=== PATIENT | female | born 1990 | race African-American/Black ===

== ENCOUNTER 2019-07-20 17:47 | Emergency (ER) | payer OTHER ==
[~2019-07-20] VITALS: Ht 170.2 cm; Wt 68.0 kg
--- NOTE | 2019-07-20 17:53 | PHYS DOC ---
Adult General Chief Complaint Chief Complaint: FEVER''... I suzanne hurt all over... I just had a baby at [facility]... I got a fever.. I am still having some bleeding.. .. I didn not want to go all the way back down to [facility].... that is usually where I get all my care..." HPI HPI Patient is a 28 year old female who presents with above hx and complaints generalized malaise, myalgia, arthralgia, vaginal bleeding, fever, and chills. Reportedly cultures were negative prior to her delivery. Child is doing well. Patient did not get flu vaccination this season. No recent travel. No history immunosuppression. Patient states her bleeding is almost equivalent to still having a period. . Review of Systems Review of Systems Constitutional: Complaints of fever or chills [] Eyes: Denies change in visual acuity, redness, or eye pain [] HENT: Complaints of nasal congestion . Respiratory: Denies cough or shortness of breath [] Cardiovascular: No additional information not addressed in HPI [] GI: Denies abdominal pain, nausea, vomiting, bloody stools or diarrhea [] : Denies dysuria or hematuria . Patient has []complaints of vaginal bleeding Musculoskeletal: Complaints of generalized myalgia and arthralgia Integument: Denies rash or skin lesions [] Neurologic: Denies headache, focal weakness or sensory changes [] Endocrine: Denies polyuria or polydipsia [] All other systems were reviewed and found to be within normal limits, except as documented in this note. Family History Family History Noncontributory Current Medications Current Medications See nursing for home meds Allergies Allergies No known drug allergies Physical Exam Physical Exam Constitutional: Well developed, well nourished, moderate acute distress, non- toxic appearance. [] HENT: Normocephalic, atraumatic, bilateral external ears normal, oropharynx moist, mild postnasal drainage and erythema, no oral exudates, nose swollen turbinates and clear rhinorrhea Eyes: PERRLA, EOMI, conjunctiva normal, no discharge. [] Neck: Normal range of motion, no tenderness, supple, no stridor. [] Cardiovascular: Tachycardia Heart rate regular rhythm, no murmur [] Lungs & Thorax: Bilateral breath sounds at apexes with a few scattered wheezes on auscultation [] Abdomen: Bowel sounds normal, soft, mild tenderness, no masses, no pulsatile masses. [] Healing incision. Vaginal exam mild bleeding from os. No focal areas of tenderness. Rectal nontender Skin: Warm, dry, no erythema, no rash. Poor turgor Back: No tenderness, no CVA tenderness. [] Extremities: No tenderness, no cyanosis, no clubbing, ROM intact, no edema. No psoas sign Neurologic: Alert and oriented X 3, normal motor function, normal sensory function, no focal deficits noted. [] Psychologic: Affect anxious and tearful, judgement normal, mood normal. [] EKG EKG [] Radiology/Procedures Radiology/Procedures [][address] [address] IMAGING REPORT Signed PATIENT: CHANTAL GILLIS ACCOUNT: [id number] : 1990 LOCATION: ER AGE: 28 SEX: F EXAM STATUS: REG ER ORD. PHYSICIAN: PREET TATUM MD REASON: Omni 300,75ml IV.Omni 240, 30ml PO.Rt lower abd pain,fever,chills PROCEDURE: CT ABD PELV W/ORAL&IV CONTRAST Examination: CT ABD PELV W/ORAL IV CONTRAST History: Right lower abdominal pain, fever and chills Comparison/Correlation: None Findings: Axial images of the abdomen and pelvis were obtained following IV and oral contrast. Liver, spleen, pancreas, adrenal glands, and left kidney are normal. Right hydronephrosis to the ureteropelvic junction level is present. No right hydroureter. Uterus is enlarged appearance. Endometrial thickening noted. Complex fluid within the uterine cavity appears be present. Right adnexal follicle is physiologic in appearance. No inflammatory change about the cecum. Assessment is limited due to limited mesenteric fat. No enlarged abdominal or pelvic lymph nodes. Urinary bladder is unremarkable. Bony structures are unremarkable. Transitional L5 vertebra is seen. Impression: Right hydronephrosis. Ureteropelvic junction obstruction. No radiopaque calculus seen. No perinephric edema to suggest acute obstructive process. Uterus is enlarged. Slightly high density fluid within the endometrial cavity. Correlate for underlying infectious process. Correlate with history. PQRS Compliance Statement: One or more of the following individualized dose reduction techniques were utilized for this examination: 1. Automated exposure control 2. Adjustment of the mA and/or kV according to patient size 3. Use of iterative reconstruction technique Electronically signed by: Rosendo Dean MD (07/20/2019 10:42 PM) [facility] DICTATED AND SIGNED BY: ROSENDO DEAN MD DATE: 07/20/19 1225 CC: PREET TATUM MD; PCP,KARIME ~ Course & Med Decision Making Course & Med Decision Making Pertinent Labs and Imaging studies reviewed. (See chart for details) Patient to push fluids. Patient keep follow-up with her [employer] and primary care. Continue monitor for vaginal bleeding. Take Tylenol and ibuprofen for discomfort. Up-to-date flu vaccination when over this acute influenza episode. Call primary in a.m. for follow-up. Exam currently not consistent with a uterine infection. Must follow-up. Overall presentation consistent with influenza. There is always a possibility of possible retained uterine products so must follow-up. Impression: 1. Fever 2. Abdomen Pain 3. S/P Delivery 07/09- at [facility] 4. + Influ B 5. Vaginal Bleeding [] Dragon Disclaimer Dragon Disclaimer This electronic medical record was generated, in whole or in part, using a voice recognition dictation system. Departure Departure: Disposition: 01 HOME/RESIDENCE PRIOR TO ADM Condition: STABLE Referrals: PCPKARIME (PCP) Juwan Disclaimer This chart was dictated in whole or in part using Voice Recognition software in a busy, high-work load, and often noisy Emergency Department environment. It may contain unintended and wholly unrecognized errors or omissions. PREET TATUM MD Jul 20, 2019 17:53
[2019-07-20] MEDS ORDERED: MORPHINE SULFATE 10 MG/ML SYRINGE. SQ ONE ×2 (19:00→22:45)
[2019-07-20] MEDS ORDERED: IV RINGERS SOLUTION,LACTATED 1,000 ML IV SCH (19:02)
[2019-07-20] MEDS ORDERED: FAMOTIDINE 20 MG/2 ML VIAL IVP ONE (19:15)
[2019-07-20] MEDS ORDERED: IOHEXOL 300 MG/ML 75 ML VIAL. IV ONE (19:45)
[2019-07-20] MEDS ORDERED: ONDANSETRON PF 4 MG/2 ML VIAL. IVP ONE (19:45)
[2019-07-20 20:08] LABS: BASO % 1 % (0-3); EOS % 1 % (0-3); HEMATOCRIT 37.4 % (36.0-47.0); HEMOGLOBIN 12.3 g/dL (12.0-15.5); LYMPH # 1.3 x10^3/uL (1.0-4.8); LYMPH % 25 % (24-48); MEAN CORPUSCULAR HEMOGLOBIN 30 pg (25-35); MEAN CORPUSCULAR HGB CONC 33 g/dL (31-37); MEAN CORPUSCULAR VOLUME 92 fL (79-100); MONO # 0.7 x10^3/uL (0.0-1.1); MONO % 14 % (0-9); NEUT % 59 % (31-73); PLATELET COUNT 251 x10^3/uL (140-400); RED BLOOD COUNT 4.06 x10^6/uL (3.50-5.40); WHITE BLOOD COUNT 5.1 x10^3/uL (4.0-11.0)
[2019-07-20 20:18] LABS: CALCIUM 8.1 mg/dL (8.5-10.1); GFR 101.9; GLUCOSE 82 mg/dL (70-99); SODIUM 140 mmol/L (136-145)
[2019-07-20 20:23] LABS: INFLUENZA A PATIENT NEGATIVE (NEGATIVE); INFLUENZA B PATIENT POSITIVE (NEGATIVE)
[2019-07-20 20:34] LABS: AST (SGOT) 15 U/L (15-37); TOTAL BILIRUBIN 0.2 mg/dL (0.2-1.0)
[2019-07-20] MEDS ORDERED: IOHEXOL 240 MG/ML 50ML VIAL. ONE (20:51)
[2019-07-20 21:00] LABS: U PREG PATIENT NEGATIVE (NEG)
[2019-07-20 21:08] LABS: BARBITURATES NEG (NEG); BENZODIAZEPINES NEG (NEG); CANNABINOIDS NEG (NEG); COCAINE NEG (NEG); METHADONE NEG (NEG); OPIATES POS (NEG); PHENCYCLIDINE NEG (NEG)
[2019-07-20 21:09] LABS: AMPHETAMINE/METHAMPHETAMINE NEG (NEG)
[2019-07-20 21:27] LABS: ANION GAP 8 (6-14); BLOOD UREA NITROGEN 12 mg/dL (7-20); CARBON DIOXIDE 24 mmol/L (21-32); CHLORIDE 108 mmol/L (98-107); CREATININE 0.8 mg/dL (0.6-1.0); POTASSIUM 3.7 mmol/L (3.5-5.1)
[2019-07-20 21:42] LABS: ALK PHOS 87 U/L (46-116); ALT (SGPT) 16 U/L (14-59); DIRECT BILIRUBIN 0.1 mg/dL (0.0-0.2); LIPASE 304 U/L (73-393)
[2019-07-20 22:04] LABS: BACTERIA,URINE 0 /HPF (0-FEW); BILIRUBIN,URINE NEG (NEG); CLARITY,URINE CLOUDY; COLOR,URINE YELLOW; GLUCOSE,URINE NEG (NEG); NITRITE,URINE NEG (NEG); SQUAMOUS EPITHELIAL CELL,UR OCC /LPF; UROBILINOGEN,URINE 0.2 mg/dL (0.2 mg/dL)
--- NOTE | 2019-07-20 22:44 | RAD ---
Examination: CT ABD PELV W/ORAL IV CONTRAST History: Right lower abdominal pain, fever and chills Comparison/Correlation: None Findings: Axial images of the abdomen and pelvis were obtained following IV and oral contrast. Liver, spleen, pancreas, adrenal glands, and left kidney are normal. Right hydronephrosis to the ureteropelvic junction level is present. No right hydroureter. Uterus is enlarged appearance. Endometrial thickening noted. Complex fluid within the uterine cavity appears be present. Right adnexal follicle is physiologic in appearance. No inflammatory change about the cecum. Assessment is limited due to limited mesenteric fat. No enlarged abdominal or pelvic lymph nodes. Urinary bladder is unremarkable. Bony structures are unremarkable. Transitional L5 vertebra is seen. Impression: Right hydronephrosis. Ureteropelvic junction obstruction. No radiopaque calculus seen. No perinephric edema to suggest acute obstructive process. Uterus is enlarged. Slightly high density fluid within the endometrial cavity. Correlate for underlying infectious process. Correlate with history. PQRS Compliance Statement: One or more of the following individualized dose reduction techniques were utilized for this examination: 1. Automated exposure control 2. Adjustment of the mA and/or kV according to patient size 3. Use of iterative reconstruction technique Electronically signed by: Rosendo Forbes MD (07/20/2019 10:42 PM) [facility]
[2019-07-20] MEDS ORDERED: MORPHINE SULFATE 4 MG/ML DISP.SYRIN. IV ONE (22:45)
[2019-07-20] MEDS ORDERED: ACETAMINOPHEN 500 MG TABLET PO ONE (22:45)
--- NOTE | 2019-07-20 22:54 | RAD ---
EXAM: Frontal view of the chest, AP views of the abdomen in upright and supine positions. CLINICAL INDICATION: Abdominal pain, nausea, vomiting COMPARISON: None. FINDINGS and IMPRESSION: The heart is not enlarged. Mediastinal and hilar contours are normal. No focal parenchymal airspace opacity. No pleural effusion or pneumothorax. No abnormal small or large bowel dilatation. Moderate colonic stool content. No abnormal soft tissue mass effect. No suspicious calcifications are seen. No free intraperitoneal gas. Electronically signed by: Zane Jacob MD (07/20/2019 10:51 PM) [facility]
[2019-07-20 23:50] VITALS: BP 125/69
[2019-07-24 18:07] LABS: CHLAMYDIA PROBE Negative (Negative)
== END 2019-07-20 23:50 | disposition home or self-care (01) ==
LOC: ER 17:47
DX: O72.1 Other immediate postpartum hemorrhage (principal); J10.1 Influenza due to other identified influenza virus with other respiratory manifestations; Z37.0 Single live birth; Z98.890 Other specified postprocedural states
CPT/HCPCS: 36415; 74022; 74177; 80048; 80076; 80307; 81001; 81025; 82553; 83605; 83690; 84484; 84702; 85025; 85610; 85730; 87040; 87070; 87086; 87491; 87591; 87804; 87880; 96372; 96374; 96375; 99285; J2270; J2405; J3490; J7120; Q9967; 94640

== ENCOUNTER 2020-06-07 11:30 | Emergency (ER) | payer OTHER ==
[~2020-06-07] VITALS: Ht 170.2 cm; Wt 64.2 kg
[2020-06-07 11:44] VITALS: BP 106/68
--- NOTE | 2020-06-07 13:54 | PHYS DOC ---
Past History Past Medical History: No Pertinent History Past Surgical History: Appendectomy Alcohol Use: None Drug Use: None General Adult EDM: Chief Complaint: COUGH HPI: HPI: Patient is a 29-year-old female coming in for fever, headache, cough, myalgias for the past day. Says her children was also recently with similar symptoms, they were tested for Covid testing negative. Review of Systems: Review of Systems: Constitutional: Fever Eyes: Denies change in visual acuity HENT: Denies nasal congestion or sore throat Respiratory: Nonproductive cough Cardiovascular: Denies chest pain or edema GI: Denies abdominal pain, nausea, vomiting, bloody stools or diarrhea : Denies dysuria Musculoskeletal: Denies back pain or joint pain Integument: Denies rash Neurologic: Headache without focal weakness or sensory changes Endocrine: Denies polyuria or polydipsia Lymphatic: Denies swollen glands Psychiatric: Denies depression or anxiety Allergies: Allergies: Allergies Coded Allergies Type Severity Reaction Last Updated Verified No Known Drug Allergies 07/20/19 No Physical Exam: PE: Constitutional: Well developed, well nourished, no acute distress, non-toxic appearance. [] HENT: Normocephalic, atraumatic, bilateral external ears normal, oropharynx tom st, no oral exudates, nose normal. [] Eyes: PERRLA, EOMI, conjunctiva normal, no discharge. [] Neck: Normal range of motion, no tenderness, supple, no stridor. [] Cardiovascular:Heart rate regular rhythm, no murmur [] Lungs & Thorax: Bilateral breath sounds clear to auscultation [] Abdomen: Bowel sounds normal, soft, no tenderness, no masses, no pulsatile masses. [] Skin: Warm, dry, no erythema, no rash. [] Back: No tenderness, no CVA tenderness. [] Extremities: No tenderness, no cyanosis, no clubbing, ROM intact, no edema. [] Neurologic: Alert and oriented X 3, normal motor function, normal sensory function, no focal deficits noted. [] Psychologic: Affect normal, judgement normal, mood normal. [] Current Patient Data: Vital Signs: Vital Signs Date Time Temp Pulse Resp B/P (MAP) Pulse Ox O2 Delivery O2 Flow Rate FiO2 06/07/20 11:44 98.6 89 16 106/68 (81) 97 Room Air EKG: EKG: [] Radiology/Procedures: Radiology/Procedures: [] Heart Score: Risk Factors: Risk Factors: DM, Current or recent (<one month) smoker, HTN, HLP, family his tory of CAD, obesity. Risk Scores: Score 0 - 3: 2.5% MACE over next 6 weeks - Discharge Home Score 4 - 6: 20.3% MACE over next 6 weeks - Admit for Clinical Observation Score 7 - 10: 72.7% MACE over next 6 weeks - Early Invasive Strategies Course & Med Decision Making: Course & Med Decision Making Strep negative, flu and Covid test. Patient requesting note for work. 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 Dis cussed that we will check the results of the test and call her if they are positive. [] [place] Disclaimer: Dragon Disclaimer: This electronic medical record was generated, in whole or in part, using a voice recognition dictation system. Departure Departure: Impression: Primary Impression: Upper respiratory infection Disposition: 01 DC HOME SELF CARE/HOMELESS Condition: STABLE Referrals: PCP,NO (PCP) GUSTABO BURNS MD Jun 07, 2020 13:54
[2020-06-07 14:32] LABS: INFLUENZA A PATIENT NEGATIVE (NEGATIVE); INFLUENZA B PATIENT NEGATIVE (NEGATIVE)
--- NOTE | 2020-06-10 12:58 | NUR ---
IP: attempt to notify patient of COVID result, unable to leave callback message, will send letter.
== END 2020-06-07 13:55 | disposition home or self-care (01) ==
LOC: ER 11:30
DX: J06.9 Acute upper respiratory infection, unspecified (principal); Z20.828 Contact with and (suspected) exposure to other viral communicable diseases
CPT/HCPCS: 87070; 87804; 87880; 99283; C9803; U0003

== ENCOUNTER 2021-01-29 07:33 | Emergency (ER) | payer OTHER ==
[~2021-01-29] VITALS: Ht 170.2 cm; Wt 64.2 kg
[2021-01-29 07:50] VITALS: BP 112/80
--- NOTE | 2021-01-29 08:06 | PHYS DOC ---
Past History Past Medical History: No Pertinent History Past Surgical History: No Surgical History, Appendectomy Alcohol Use: None Drug Use: None Adult General Chief Complaint Chief Complaint: DENTAL PROBLEM HPI HPI Patient is a 30-year-old female presenting for dental problems. Onset was 3 weeks ago, she visited [facility] local urgent care and was diagnosed with a broken tooth status post breaking said tooth from her metallic tongue ring. She was given pain medication and an antibiotic which she took to completion. This did not resolve her problem and so she followed up with a local dentist who prescribed her more antibiotics. She has finished these but reports of ongoing pain for past x2 nights. She is taken Tylenol only intermittently without any improvement in pain. She is here for ongoing focal pain to area of broken tooth, no fever, abscess, exudate/drainage or other concerning findings Review of Systems Review of Systems Fourteen body systems of review of systems have been reviewed. See HPI for pertinent positives and negative responses, other richard all other systems are negative, non-pertinent or non-contributory Allergies Allergies Allergies Coded Allergies Type Severity Reaction Last Updated Verified No Known Drug Allergies 07/20/19 No Physical Exam Physical Exam Constitutional: Well developed, well nourished, no acute distress, non-toxic appearance. HENT: Normocephalic, atraumatic, bilateral external ears normal, oropharynx moist, no oral exudates, broken tooth #30 without any signs of active infection or concern for abscess or any other dental emergencies, tolerating secretions without phonation, nose normal. Eyes: PERRLA, EOMI, conjunctiva normal, no discharge. Neck: Normal range of motion, no tenderness, supple, no stridor. Cardiovascular: Heart rate regular per monitor Lungs & Thorax: No respiratory distress or accessory muscle use, bilateral chest rise Abdomen: Abdomen soft, non-tender, bowel sounds present in all quadrants, no guarding or rebound, nonacute abdomen. Skin: Warm, dry, no erythema, no rash. Back: No tenderness, no CVA tenderness. Extremities: No tenderness, no cyanosis, no clubbing, ROM intact, no edema. Neurologic: Alert and oriented X 3, grossly normal motor & sensory function, no focal deficits noted. Psychologic: Affect normal, judgement normal, mood normal. Current Patient Data Vital Signs Vital Signs Date Time Temp Pulse Resp B/P (MAP) Pulse Ox O2 Delivery O2 Flow Rate FiO2 01/29/21 07:50 98.8 94 18 112/80 98 Room Air EKG EKG [] Radiology/Procedures Radiology/Procedures [] Heart Score C/O Chest Pain: No Risk Factors: Risk Factors: DM, Current or recent (<one month) smoker, HTN, HLP, family history of CAD, obesity. Risk Scores: Risk Factors: DM, Current or recent (<one month) smoker, HTN, HLP, family history of CAD, obesity. Course & Med Decision Making Course & Med Decision Making ABCs unremarkable. I disclosed entirety of ER findings and discussed most likely diagnosis of a broken tooth. Toradol and Tylenol administered in ER. She has a dentist, I advised her to contact and visit them [facility] for definitive management. Strict return precautions were also discussed at length with good understanding by patient. Patient voiced understanding and agreement with the plan. Patient knows to come back for repeat evaluation if concerning signs or symptoms present prior to outpatient follow-up. Hemodynamically stable, ambulatory and well-appearing at time of disposition. Dragon Disclaimer Dragon Disclaimer This electronic medical record was generated, in whole or in part, using a voice recognition dictation system. Departure Departure: Impression: Primary Impression: Pain, dental Disposition: HOME / SELF CARE / HOMELESS Condition: STABLE Referrals: PCP,NO (PCP) Patient Instructions: Dental Pain, [id number] Additional Instructions: You were seen for dental pain. There does not appear to be any infection at this time. Take Ibuprofen (600-800mg) and Tylenol (500-650mg) alternating every 4-6 hours to help with inflammation and pain while you contact your dentist ALEXSANDRA for further care. You should return to the ED if you develop worsening pain, fever > 101, swelling, redness, or any other new or concerning symptoms. Unfortunately, your pain is not likely to improve without seeing a dentist for further evaluation and treatment of your poor dentition and dental caries. MARCELLO POWELL DO Jan 29, 2021 08:06
[2021-01-29] MEDS ORDERED: KETOROLAC 60 MG/2 ML VIAL. IM ONE (08:15)
[2021-01-29] MEDS ORDERED: ACETAMINOPHEN 325 MG TABLET PO ONE (08:15)
== END 2021-01-29 08:35 | disposition home or self-care (01) ==
LOC: ER 07:33
DX: K08.89 Other specified disorders of teeth and supporting structures (principal)
CPT/HCPCS: 81025; 96372; 99283; J1885

== ENCOUNTER 2021-03-09 09:35 | Emergency (ER) | payer OTHER ==
[~2021-03-09] VITALS: Ht 172.7 cm; Wt 67.8 kg
[2021-03-09 09:53] VITALS: BP 120/72
[2021-03-09] MEDS ORDERED: METOCLOPRAMIDE HCL 10 MG/2 ML VIAL. IVP ONE (10:15)
[2021-03-09] MEDS ORDERED: IV NORMAL SALINE 1,000ML 1,000 ML IV ONE (10:15)
[2021-03-09] MEDS ORDERED: diphenhydrAMINE 50 MG/ML VIAL IVP ONE (10:15)
[2021-03-09] MEDS ORDERED: KETOROLAC 30 MG/ML VIAL. IVP ONE (10:15)
--- NOTE | 2021-03-09 10:28 | PHYS DOC ---
Past History Past Medical History: No Pertinent History Past Surgical History: No Surgical History Alcohol Use: None Drug Use: None General Adult EDM: Chief Complaint: HEADACHE HPI: HPI: 30-year-old female presents with nausea, vomiting, headache for the last 2 days. The patient is vaccinated for COVID-19 however her sister was just visiting from out of town and when she got home she discovered she had a positive test. The patient is concerned she might have Covid. Patient is also had another friend who had very similar symptoms. She denies chest pain, shortness of breath, fever, or chills. Review of Systems: Review of Systems: Constitutional: Body aches, fatigue. Denies fever or chills Eyes: Denies change in visual acuity HENT: Denies nasal congestion or sore throat Respiratory: Denies cough or shortness of breath Cardiovascular: Denies chest pain or edema GI: Vomiting, diarrhea : Denies dysuria Musculoskeletal: Denies back pain or joint pain Integument: Denies rash Neurologic: Denies headache, focal weakness or sensory changes Endocrine: Denies polyuria or polydipsia Lymphatic: Denies swollen glands Psychiatric: Denies depression or anxiety Allergies: Allergies: Allergies Coded Allergies Type Severity Reaction Last Updated Verified No Known Drug Allergies 07/20/19 No Physical Exam: PE: Constitutional: Well developed, well nourished, no acute distress, non-toxic appearance. [] HENT: Normocephalic, atraumatic, bilateral external ears normal, oropharynx moist, no oral exudates, nose normal. [] Eyes: PERRLA, EOMI, conjunctiva normal, no discharge. [] Neck: Normal range of motion, no tenderness, supple, no stridor. [] Cardiovascular: Heart rate regular rhythm, no murmur [] Lungs & Thorax: Bilateral breath sounds clear to auscultation [] Abdomen: Bowel sounds normal, soft, no tenderness, no masses, no pulsatile masses. [] Skin: Warm, dry, no erythema, no rash. [] Back: No tenderness, no CVA tenderness. [] Extremities: No tenderness, no cyanosis, no clubbing, ROM intact, no edema. [] Neurologic: Alert and oriented X 3, normal motor function, normal sensory function, no focal deficits noted. [] Psychologic: Affect normal, judgement normal, mood normal. [] Current Patient Data: Vital Signs: Vital Signs Date Time Temp Pulse Resp B/P (MAP) Pulse Ox O2 Delivery O2 Flow Rate FiO2 03/09/21 09:53 98.4 81 20 120/72 98 Room Air EKG: EKG: [] Radiology/Procedures: Radiology/Procedures: [] Impressions: Chest AP portable at 1025: Reason for examination: Covid exposure. Headache, fever and body aches. The heart size is normal. Mediastinum is unremarkable. Lung shirley show no definite infiltrates or pleural effusions. No acute bony abnormalities are seen. Impression: No acute cardiopulmonary disease. Electronically signed by: Ami Peng MD (03/09/2021 10:37 AM) [id number] DICTATED AND SIGNED BY: AMI PENG MD DATE: 03/09/21 1035 CC: JESSE NEWELL DO; PCP,NO ~MTH0 0 Heart Score: C/O Chest Pain: N/A Risk Factors: Risk Factors: DM, Current or recent (<one month) smoker, HTN, HLP, family history of CAD, obesity. Risk Scores: Score 0 - 3: 2.5% MACE over next 6 weeks - Discharge Home Score 4 - 6: 20.3% MACE over next 6 weeks - Admit for Clinical Observation Score 7 - 10: 72.7% MACE over next 6 weeks - Early Invasive Strategies Course & Med Decision Making: Course & Med Decision Making Pertinent Labs and Imaging studies reviewed. (See chart for details) The patient's labs are unremarkable. Her chest x-ray is negative for acute findings. Despite being vaccinated, the patient is likely to have COVID-19. We have tested her with the results are not back until tomorrow. I have advised that she isolate from other people until she gets her test result back. She is stable for discharge at this time. [] Dragon Disclaimer: Dragon Disclaimer: This electronic medical record was generated, in whole or in part, using a voice recognition dictation system. Departure Departure: Impression: Primary Impression: Suspected COVID-19 virus infection Disposition: HOME / SELF CARE / HOMELESS Condition: STABLE Referrals: PCP,NO (PCP) Additional Instructions: You have been tested for or diagnosed with COVID-19. It is an infection caused by a new type of coronavirus. COVID-19 will cause cold-like or mild flu symptoms in most. It can cause more severe symptoms like problems breathing in some. There is no treatment for COVID-19. The body will clear the infection over time. Self-care will help to ease discomfort. Steps to Take: Self-Care Rest as needed. Healthy habits may help you feel better. Steps include: Choose healthy foods including fruits and vegetables. Drink water throughout the day. Get plenty of sleep each night. If you smoke, try to quit. It may ease breathing. Avoid alcohol. Keep Others Healthy The virus can spread to others. Droplets are released every time you sneeze or cough. The droplets can get into the mouth, nose, or eyes of people near you and lead to infection. To lower the chances of spreading COVID-19 to others: Stay at home until your doctor has said it is safe to leave. If you tested positive this will mean staying isolated until both of the following are true: At least 7 days have passed since the start of illness. You are free of fever for at least 72 hours without the use of medicine. During this time: - Avoid public areas, events, or transportation. Do not return to work or school until your doctor has said it is safe to do so. - Call ahead if you need to go to a medical center. Let them know you may have COVID-19. It will help them guide you where to go. They may also ask you to wear a facemask when you come to the office. - If you call for emergency medical services, let them know you may have COVID- 19. While at home: - Try to avoid close contact with others. Stay about 6 feet away. - If possible, spend most of your time in a separate room from others. - Use a face mask if you will be in close contact with others such as sharing a room or vehicle. - Have someone wipe down common surfaces in the home. Use household religious educator every day on areas like doorknobs, counters, or sinks. - Cough or sneeze into a tissue. Throw the tissue away right after use. If a tissue is not available, cough or sneeze into your elbow. - Wash your hands often. Wash them after sneezing or coughing. Use soap and water and wash for at least 20 seconds. Alcohol based hand machine cleaner can be used if soap and water is not available. - Do not prepare food for others. Avoid sharing personal items like forks, spoons, or toothbrushes. - Avoid close contact with pets while you are sick. There is no evidence of the virus passing to pets. This is a safety step until more is known about this virus. Isolation can be frustrating. Social interaction can help. Keep in touch with friends and family through phone and tech options. You can still interact with others in your home, just keep a safe distance of about 6 feet. Follow-up: Your doctors office will check in with you to see if there are any changes in your health. You may be asked to keep track of symptoms to share with them. They will also let you know when you are clear to be in public again. Problems to Look Out For: Contact your doctor if your recovery is not going as you expect. Get emergency care if you have problems such as: - Trouble breathing - Nonstop chest pain or pressure - Changes in awareness, confusion, or problems waking - Lips or face have bluish color - Worsening of symptoms If you think you have an emergency, call for emergency medical services right away. As taken from [facility] JESSE NEWELL DO Mar 09, 2021 10:28
--- NOTE | 2021-03-09 10:39 | RAD ---
Chest AP portable at 1025: Reason for examination: Covid exposure. Headache, fever and body aches. The heart size is normal. Mediastinum is unremarkable. Lung shirley show no definite infiltrates or pl eural effusions. No acute bony abnormalities are seen. Impression: No acute cardiopulmonary disease. Electronically signed by: Ami Michaels MD (03/09/2021 10:37 AM) [id number]
[2021-03-09 11:07] LABS: BASO % 1 % (0-3); EOS # 0.2 x10^3/uL (0.0-0.7); EOS % 3 % (0-3); HEMATOCRIT 34.9 % (36.0-47.0); HEMOGLOBIN 11.6 g/dL (12.0-15.5); LYMPH # 1.9 x10^3/uL (1.0-4.8); LYMPH % 32 % (24-48); MEAN CORPUSCULAR HEMOGLOBIN 33 pg (25-35); MEAN CORPUSCULAR HGB CONC 33 g/dL (31-37); MEAN CORPUSCULAR VOLUME 98 fL (79-100); MONO # 0.4 x10^3/uL (0.0-1.1); MONO % 7 % (0-9); NEUT # 3.4 x10^3uL (1.8-7.7); NEUT % 58 % (31-73); PLATELET COUNT 296 x10^3/uL (140-400); RED BLOOD COUNT 3.55 x10^6/uL (3.50-5.40); RED CELL DISTRIBUTION WIDTH 13.3 % (11.5-14.5); WHITE BLOOD COUNT 5.9 x10^3/uL (4.0-11.0)
[2021-03-09 11:11] LABS: CREATININE 0.7 mg/dL (0.6-1.0); GFR 117.3; POTASSIUM 3.7 mmol/L (3.5-5.1)
[2021-03-09 11:17] LABS: ALBUMIN 3.7 g/dL (3.4-5.0); ALBUMIN/GLOBULIN RATIO 1.4 (1.0-1.7); TOTAL BILIRUBIN 0.6 mg/dL (0.2-1.0); TOTAL PROTEIN 6.4 g/dL (6.4-8.2)
== END 2021-03-09 11:46 | disposition home or self-care (01) ==
LOC: ER 09:35
DX: R11.2 Nausea with vomiting, unspecified (principal); R51.9 Headache, unspecified; R19.7 Diarrhea, unspecified; Z20.822 Contact with and (suspected) exposure to COVID-19
CPT/HCPCS: 71045; 80053; 85025; 96361; 96374; 96375; 99284; C9803; J1200; J1885; J2765; J7030; U0003

== ENCOUNTER 2021-06-25 07:43 | Emergency (ER) | payer OTHER ==
[~2021-06-25] VITALS: Ht 172.7 cm; Wt 67.8 kg
--- NOTE | 2021-06-25 08:21 | PHYS DOC ---
Past History Past Medical History: No Pertinent History Past Surgical History: No Surgical History Alcohol Use: None Drug Use: None Adult General Chief Complaint Chief Complaint: FEVER HPI HPI Patient is a 30-year-old female presenting for URI symptoms. Symptom onset was yesterday. She admits the whole house has had similar URI symptoms but no one has been tested for COVID-19. States her symptoms started yesterday. She has been suffering from nasal congestion, rhinorrhea, postnasal drip and a dry nonproductive cough. She has extreme fatigue and generalized body aches. She states she felt hot and had a fever of 103 prior to arrival but did not take anything. She has not taken anything since symptom onset for her symptoms. She states she has been nauseous but has not vomited, no diarrhea. She is otherwise healthy with no known medical issues, takes no medications on a daily basis. She does admit she is fully vaccinated against COVID-19 receiving these in August 2020, she was also infected with COVID-13 March 2021 Review of Systems Review of Systems Fourteen body systems of review of systems have been reviewed. See HPI for pertinent positives and negative responses, other richard all other systems are negative, non-pertinent or non-contributory Allergies Allergies Allergies Coded Allergies Type Severity Reaction Last Updated Verified No Known Drug Allergies 06/25/21 No Physical Exam Physical Exam General: Appears well, non toxic, and comfortable Skin: Warm, dry. Normal for ethnicity. HEENT: Atraumatic. PERRLA. Rhinorrhea and congestion. Nasal turbinates boggy b/l. Moist mucous membranes. Uvula midline. Maintaining secretions. No phonation changes. Neck: Trachea midline. Normal ROM. No stridor. Respiratory: Normal WOB. CTAB w/o w/r/r. No tachypnea. Cardiovascular: Regular rate and rhythm. Normal peripheral perfusion. Abdomen: Soft. Non tender. No distension. Back: Normal ROM. Musculoskeletal: No swelling or deformity. Neuro: Alert and oriented x 4. MAEE. Lymph: No cervical LAD. Psych: Normal affect and mood. Current Patient Data Vital Signs Vital Signs Date Time Temp Pulse Resp B/P (MAP) Pulse Ox O2 Delivery O2 Flow Rate FiO2 06/25/21 08:03 98.5 85 20 121/76 (91) 97 Room Air Lab Results Laboratory Tests Test 06/25/21 08:25 Coronavirus (COVID-19)(PCR) Positive Influenza Type A (Rapid) Negative Influenza Type B (Rapid) Negative Current Medications Medications (Trade) Dose Ordered Sig/Dayne Route PRN Reason Start Time Stop Time Status Last Admin Dose Admin Ondansetron HCl (Zofran Odt) 4 mg 1X ONCE PO 06/25/21 08:30 06/25/21 09:11 DC 06/25/21 08:28 Acetaminophen (Tylenol) 650 mg 1X ONCE PO 06/25/21 08:30 06/25/21 09:11 DC 06/25/21 08:28 EKG EKG [] Radiology/Procedures Radiology/Procedures [] Heart Score C/O Chest Pain: No Risk Factors: Risk Factors: DM, Current or recent (<one month) smoker, HTN, HLP, family his tory of CAD, obesity. Risk Scores: Risk Factors: DM, Current or recent (<one month) smoker, HTN, HLP, family history of CAD, obesity. Course & Med Decision Making Course & Med Decision Making ABCs unremarkable HPI physical exam and comprehensive ER work-up nonconcerning for any emergent or surgical issues Discussed little indication for further diagnostic work-up in ER setting in a patient likely suffering from a self-limiting viral syndrome. She is a PUI for Covid with PCR COVID-19 test pending I discussed this might be an acute presentation more concerning pathology but given overall well-appearing hemodynamically stable state of patient, no need for further intervention Joint decision made to discharge home with new prescription for Zofran and continued supportive care practices Dragon Disclaimer Dragon Disclaimer This electronic medical record was generated, in whole or in part, using a voice recognition dictation system. Departure Departure: Impression: Primary Impression: Viral syndrome Additional Impression: Person under investigation for COVID-19 Disposition: HOME / SELF CARE / HOMELESS Condition: STABLE Referrals: LISA JOSHUA MD (PCP) Additional Instructions: You were seen for headache, fever, body aches, and possible infection with COVID-19. Your physical exam was reassuring. Your flu test today was negative. We tested you for COVID-19 but this test does not come back for 1 to 2 days. In the meantime you need to quarantine yourself at home away from all other individuals, especially those who are elderly or have any other chronic health issues or an immunocompromised status. You should return to the ED if you develop worsening cough, shortness of breath, chest pain, or any other new or concerning symptoms. Alternate Tylenol and ibuprofen as needed for body aches and pain in addition to prescribed Zofran which should be used for nausea as needed. If your test does come back positive you need to quarantine yourself for 10 days until symptom-free. You should make sure to drink plenty of fluids and get plenty of rest. Scripts Ondansetron (ONDANSETRON ODT) 4 Mg Tab.rapdis 1 TAB PO PRN Q6-8HRS for nausea, #16 TAB Prov: MARCELLO POWELL DO 06/25/21 Problem Qualifiers MARCELLO POWELL DO Jun 25, 2021 08:21
[2021-06-25] MEDS: ACETAMINOPHEN 325 MG TABLET PO ONE (08:28)
[2021-06-25] MEDS: ONDANSETRON ODT 4 MG TAB.RAPDIS PO ONE (08:28)
[2021-06-25 09:04] LABS: INFLUENZA A PATIENT NEGATIVE (NEGATIVE); INFLUENZA B PATIENT NEGATIVE (NEGATIVE)
[2021-06-25] MEDS ORDERED: ONDA4TAB12 PO (09:25)
[2021-06-25 09:45] VITALS: BP 119/68
== END 2021-06-25 09:45 | disposition home or self-care (01) ==
LOC: ER 07:43
DX: U07.1 COVID-19 (principal); B34.9 Viral infection, unspecified
CPT/HCPCS: 87804; 99283; C9803; Q0162; U0003